=== PATIENT | male | born 1990 | race Asian ===

== ENCOUNTER 2022-05-09 10:32 | Outpatient (CLI) | payer OTHER ==
[~2022-05-09] VITALS: Ht 200.7 cm; Wt 79.4 kg
[2022-05-09] MEDS ORDERED: albuterol 2.5 MG/3 ML nebule NEB ONE (10:55)
== END 2022-05-09 23:59 | disposition home or self-care (01) ==
LOC: RT 10:32
PROVIDERS: ATTEND Chiropractor
DX: J98.11 Atelectasis (principal); R94.2 Abnormal results of pulmonary function studies; J98.4 Other disorders of lung
CPT/HCPCS: 71046; 94060; 94760